=== PATIENT | male | born 1950 | race Hispanic/Latino ===

== ENCOUNTER 2018-05-30 16:58 | Emergency (ER) | payer MEDICARE ==
[~2018-05-30] VITALS: Ht 167.6 cm; Wt 72.6 kg
[2018-05-30] MEDS ORDERED: ROPINIROLE HC0.25 MG PO (18:31)
[2018-05-30] MEDS ORDERED: TYLENOL WITH C1 EACH PO (18:31)
[2018-05-30] MEDS ORDERED: ULTRAM50 MG PO (18:31)
[2018-05-30] MEDS ORDERED: LEVOTHYROXINE100 MC1 IV (18:31)
[2018-05-30] MEDS ORDERED: CITALOPRAM HBR10 MG (18:31)
[2018-05-30] MEDS ORDERED: CRESTOR10 MG (18:31)
== END 2018-05-30 19:11 | disposition home or self-care (01) ==
LOC: FSED 16:58
DX: K59.00 Constipation, unspecified (principal); G20 Parkinson's disease; E78.5 Hyperlipidemia, unspecified
CPT/HCPCS: 99282